=== PATIENT | female | born 2000 | race African-American/Black ===

== ENCOUNTER 2023-02-21 07:18 | Emergency (ER) | payer OTHER ==
[~2023-02-21] VITALS: Ht 162.6 cm; Wt 45.0 kg
[2023-02-21 07:27] VITALS: O2SAT 99
[2023-02-21] MEDS ORDERED: OFLO5DRO RIGHTEYE (09:33)
[2023-02-21 10:07] VITALS: BP 121/74; PULSE 69; RESP 20; TEMP 97.8
== END 2023-02-21 10:11 | disposition home or self-care (01) ==
LOC: ER 07:18
DX: H10.9 Unspecified conjunctivitis (principal)
CPT/HCPCS: 99281

== ENCOUNTER 2024-04-26 08:59 | Emergency (ER) | payer MEDICAID, OTHER ==
[~2024-04-26] VITALS: Ht 160 cm; Wt 58.0 kg
[~2024-04-26 08:59] MED LIST: OFLO5DRO RIGHTEYE
[2024-04-26 09:37] VITALS: O2SAT 100
[2024-04-26 09:39] VITALS: BP 131/73; PULSE 96; RESP 18; TEMP 98.4; O2SAT 99
[2024-04-26] MEDS: MAGNESIUM/ALUMINUM HYDROXIDE/SIMETHICONE 30ML UDC PO ONE (10:36)
[2024-04-26 10:50] LABS: BASOPHILS % 0.1 % (0.0-2.0); EOSINOPHILS % 0.6 % (0.0-5.0); HEMATOCRIT. 43.4 % (36.0-48.0); HEMOGLOBIN. 14.2 g/dL (12.0-16.0); LYMPHOCYTES % 22.1 % (20.0-50.0); MEAN CORPUSCULAR HEMOGLOBIN 28.9 pg (28.0-32.0); MEAN CORPUSCULAR HGB CONC 32.8 g/dL (31.0-37.0); MEAN CORPUSCULAR VOLUME 88.3 fL (81.0-99.0); MEAN PLATELET VOLUME 8.3 fl (7.4-10.4); MONOCYTES % 4.5 % (2.0-8.0); NEUTROPHILS % 72.7 % (40.0-76.0); PLATELET 262 x1000/uL (130-400); RED BLOOD CELL COUNT 4.91 mill/uL (4.2-5.4); WHITE BLOOD COUNT 5.2 x1000/uL (4.5-11.0)
[2024-04-26 10:53] LABS: CARBON DIOXIDE 25 mEq/L (21-32); CHLORIDE 107 mEq/L (98-107); POTASSIUM 4.2 mEq/L (3.5-5.1); SODIUM 141 mEq/L (136-145)
[2024-04-26 10:54] LABS: CALCIUM 9.9 mg/dL (8.7-10.4)
[2024-04-26 10:58] LABS: CREATININE 1.1 mg/dL (0.6-1.0)
[2024-04-26 10:59] LABS: GLUCOSE 99 mg/dL (70-105); HCG SCREEN NEGATIVE; UREA NITROGEN BLOOD 14 mg/dL (9-23)
[2024-04-26 11:00] LABS: ALANINE AMINOTRANSFERASE 40 IU/L (10-49); ALBUMIN 4.5 g/dL (3.2-4.8); ASPARTATE AMINOTRANSFERASE 27 IU/L (<34)
[2024-04-26 11:01] LABS: BILIRUBIN DIRECT 0.2 mg/dL (<=3.0); BILIRUBIN TOTAL 0.6 mg/dL (0.1-1.0); PROTEIN TOTAL 7.4 g/dL (6.0-8.3)
[2024-04-26] MEDS ORDERED: ONDA-239 PO (11:24)
[2024-04-26] MEDS ORDERED: PROT40 MT (11:24)
[2024-04-26] MEDS ORDERED: MAG-55 MT (11:24)
== END 2024-04-26 11:49 | disposition home or self-care (01) ==
LOC: ER 08:59
DX: R10.13 Epigastric pain (principal); K21.9 Gastro-esophageal reflux disease without esophagitis; Z79.899 Other long term (current) drug therapy
CPT/HCPCS: 36415; 80048; 80076; 84703; 85025; 99283